=== PATIENT | female | born 1980 | race Caucasian/White ===

== ENCOUNTER 2022-12-03 00:19 | Emergency (ER) | payer BC, SELFPAY ==
[2022-12-03 00:21] VITALS: BP 114/82; PULSE 81; RESP 18; TEMP 36.5; O2SAT 99; BMI 24.8
--- NOTE | 2022-12-03 00:33 | PC.NURSE ---
PATIENT TO ED WITH COMPLAINT OF LUE PAIN, NUMBNESS, TINGLING, BURNING, SWELLING AND DISCOLORATION, ALL OF WHICH STARTED YESTERDAY MORNING. 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 THE ARM DOES NOT APPEAR DISCOLORED AT THIS TIME. SHE SAW DR. FERNANDEZ AND WAS GIVEN MUSCLE RELAXER AND DICLOFENAC. SHE TOOK ONE MUSCLE RELAXER AT 2100 LAST NIGHT AND WAS ABLE TO SLEEP FOR ABOUT 2 HOURS BEFORE WAKING UP TO THE PAIN BEING EVEN MORE INTENSE.
--- NOTE | 2022-12-03 00:34 | XR_ITS ---
The [address] [address] Patient Name: XENIA LOGAN MRN: [id number] date: 1980 Sex: F Assigned Patient Location: ED.MAIN Current Patient Location: ED.MAIN Accession/Order Number: [id number] Exam Date: 12/03/2022 01:06 Report Date: 12/03/2022 01:43 At the request of: ELENO DAVID Procedure: XR shoulder LT min 2V EXAM: XR shoulder LT min 2V HISTORY: pain COMPARISON: None. TECHNIQUE: 3 views of the left shoulder are performed. FINDINGS: There is no acute fracture or dislocation. The bony structures are intact. There are calcifications adjacent to the lateral margin of the proximal humerus, suggesting calcific tendinitis. The visualized left lung is clear. XR/XR shoulder LT min 2V IMPRESSION: Calcific tendinitis. No acute bony abnormality. Electronically authenticated by: ADAIR MORALES Date: 12/03/2022 01:43
--- NOTE | 2022-12-03 00:34 | ED.UPPEXIN1 ---
HPI - Extremity Injury (Upper) General Chief Complaint: Extremity Injury, Upper Stated Complaint: LEFT ARM NUMBNESS Time Seen by Provider: 12/03/22 00:29 Mode of arrival: walk-in History of Present Illness HPI narrative: left shoulder pain. working around the house the weekend. Not able to recall any injury. left shoulder pain yesterday. called PCP and NSAID and muscle relaxer called in. Laid down tonight and woke up with increased pain of her shoulder. Pain radiates down her left arm. left arm and numb and tingly and left hand feels weak. No fever. No complaint of neck pain. Most of the pain is at the left shoulder and pain increases with ROM of the shoulder MD complaint: injury to: Reports left Related Data Home Medications Medication Instructions Recorded Confirmed diclofenac sodium 75 mg mg PO 12/03/22 tablet,delayed release tizanidine 4 mg tablet mg 12/03/22 Allergies Allergy/AdvReac Type Severity Reaction Status Date / Time No Known Drug Allergies Allergy Verified 12/03/22 00:27 Review of Systems ROS Status of ROS 10 or more systems reviewed and unremarkable except as noted in history and below PFSH PFS Social History Smoking status: Never smoker Exam Constitutional Vital Signs, click to edit/add: Last Vital Signs Temp 97.7 F 12/03/22 00:21 Pulse 81 12/03/22 00:21 Resp 18 12/03/22 00:21 BP 114/82 12/03/22 00:21 Pulse Ox 99 12/03/22 00:21 O2 Del Method Room Air 12/03/22 00:21 Common normals: no apparent distress (mild distress. Holding left shoulder against her body) HENMT Common normals: normocephalic Eye Common normals: EOMs intact bilaterally and conjunctivae normal Neck & C-Spine Common normals: full ROM Other: mild left para cervical and superior trapezius . mild-mod tenderness left shoulder. limited ROM left shoulder Respiratory Common normals: normal respiratory effort, no retractions, no use of accessory muscles and clear to auscultation bilaterally Cardio Common normals: regular rhythm, S1 normal heart sound and S2 normal heart sound Extremity Common normals: no joint enlargement Neuro Common normals: oriented x3, CN's II-XII intact bilaterally and moves all extremities Other: decreased left hand grasp Psych Appearance: grossly normal Course Vital Signs Vital signs: Vital Signs Temperature 97.7 F 10/06/23 00:21 Pulse Rate 81 12/03/22 00:21 Respiratory Rate 18 12/03/22 00:21 Blood Pressure 114/82 12/03/22 00:21 Pulse Oximetry 99 12/03/22 00:21 Oxygen Delivery Method Room Air 12/03/22 00:21 Temperature 97.7 F 12/03/22 00:21 Pulse Rate 81 12/03/22 00:21 Respiratory Rate 18 12/03/22 00:21 Blood Pressure 114/82 12/03/22 00:21 Pulse Oximetry 99 12/03/22 00:21 Oxygen Delivery Method Room Air 12/03/22 00:21 MDM - Extremity Injury (Upper) MDM Narrative Medical decision making narrative: patient presents with left shoulder pain and cervical neuropathy of the left upper ext. xray demonstrates calcific tendonitis and CT demonstrates left paracentral disc protrusion C5-6. Patient treated with solumedrol, toradol and magnesium. Her discomfort improved. Her hand grasp improved also now that she doesn't have as much pain of her arm. She is provided with a sling and discharged home to follow up with Dr Abdi orthopedics and her PCP Dr Knight Lab Data Labs: Lab Results 12/03/22 Range/Units 00:40 WBC 10.7 (4.0-11.0) 10^3/uL RBC 3.97 L (4.20-5.40) 10^6/uL Hgb 12.1 (12.0-16.0) g/dL Hct 37.2 (36.0-48.0) % MCV 93.7 (81.0-99.0) fL MCH 30.5 (26.7-34.0) pg MCHC 32.5 (29.9-35.2) g/dL RDW 12.9 (11.0-15.0) % Plt Count 284 (150-450) 10^3/uL MPV 9.4 L (9.5-13.5) fL Neut % (Auto) 68.5 (43.0-75.0) % Lymph % (Auto) 21.7 (20.5-60.0) % [place] % (Auto) 7.2 (1.7-12.0) % Eos % (Auto) 1.9 (0.9-7.0) % Baso % (Auto) 0.4 (0.2-2.0) % Neut # (Auto) 7.4 H (1.4-6.5) 10^3/uL Lymph # (Auto) 2.3 (1.2-3.8) 10^3/uL [place] # (Auto) 0.8 (0.3-0.8) 10^3/uL Eos # (Auto) 0.2 (0.0-0.7) 10^3/uL Baso # (Auto) 0.0 (0.0-0.1) 10^3/uL Abs Immat Gran (auto) 0.03 (0.00-0.03) 10^3/uL Imm/Tot Granulo (auto) 0.3 (0.0-0.5) % ESR 32 H (<=20) mm/hr Sodium 137 (136-145) mmol/L Potassium 3.5 (3.5-5.1) mmol/L Chloride 103 (98-107) mmol/L Carbon Dioxide 28.4 (21.0-32.0) mmol/L Anion Gap 9.1 BUN 13.0 (7.0-18.0) mg/dL Creatinine 0.68 (0.55-1.02) mg/dL Est GFR ( Amer) >60 (>=60) Est GFR (Non-Af Amer) >60 (>=60) BUN/Creatinine Ratio 19.1 Glucose 132 H (74-106) mg/dL Calcium 7.3 L (8.5-10.1) mg/dL C-Reactive Protein <0.2 (<=1.0) mg/dL Imaging Data Chest x-ray: Radiologist's impression: Current Patient Location: ED.MAIN Accession/Order Number: [id number] Exam Date: 12/03/2022 01:06 Report Date: 12/03/2022 01:43 At the request of: ELENO DAVID Procedure: XR shoulder LT min 2V EXAM: XR shoulder LT min 2V HISTORY: pain COMPARISON: None. TECHNIQUE: 3 views of the left shoulder are performed. FINDINGS: There is no acute fracture or dislocation. The bony structures are intact. There are calcifications adjacent to the lateral margin of the proximal humerus, suggesting calcific tendinitis. The visualized left lung is clear. IMPRESSION: Calcific tendinitis. No acute bony abnormality. Electronically authenticated by: ADAIR MORALES Date: 12/03/2022 01:43 CT scan - chest: Radiologist's impression: 12/03/2022 00:58 Report Date: 12/03/2022 01:28 At the request of: ELENO DAVID Procedure: CT cervical spine wo con EXAM: CT cervical spine wo con HISTORY: radicular pain left COMPARISON: None. TECHNIQUE: CT of the cervical spine was acquired without IV contrast. FINDINGS: There is straightening of the normal cervical lordotic curvature. Vertebral body heights are preserved. Cervical spine alignment is maintained without evidence for spondylolisthesis. No acute fractures are visualized. Posterior elements are intact. Prevertebral soft tissues appear unremarkable. Moderate disc space narrowing at C4-C5 and C5-C6. Small broad-based disc protrusion at C4-C5 slightly abutting the ventral cord without significant central canal narrowing. Left paracentral disc protrusion at C5-C6 slightly abutting the left ventral cord with mild to moderate central canal narrowing with mild to moderate left neuroforaminal narrowing. No high-grade neuroforaminal narrowing is visualized within the cervical spine.. Small central disc protrusion at C6-C7 without significant central canal narrowing. Partially visualized mucous retention cyst versus polyp within the left sphenoid sinus. Imaged portions of the lungs appear unremarkable. IMPRESSION: 1. No acute fracture or malalignment of the cervical spine. 2. Moderate disc space narrowing at C4-C5 and C5-C6. 3. Left paracentral disc protrusion at C5-C6 slightly abutting the left ventral cord with mild to moderate central canal narrowing and mild to moderate left neuroforaminal narrowing. No CT evidence for high-grade central canal or osseous neuroforaminal narrowing. Electronically authenticated by: MADAI WATSON Date: 12/03/2022 01:28 Discharge Plan Discharge Chief Complaint: Extremity Injury, Upper Clinical Impression: Calcific tendinitis of left shoulder, Cervical radiculopathy at C6 Patient Disposition: Home, Self-Care Prescriptions / Home Meds: No Action tizanidine 4 mg tablet diclofenac sodium 75 mg tablet,delayed release (DR/EC) PO Instructions: Calcific Tendinitis (ED), Cervical Radiculopathy (ED) Additional Instructions: follow up with orthopedics Dr Abdi and with Dr Knight Stand Alone Forms: Portal Instructions Referrals: George Knight MD [Primary Care Provider] - 1 week
--- NOTE | 2022-12-03 00:37 | CT_ITS ---
[address] [address] Patient Name: XENIA LOGAN MRN: [id number] date: 1980 Sex: F Assigned Patient Location: ER Current Patient Location: ED.MAIN Accession/Order Number: [id number] Exam Date: 12/03/2022 00:58 Report Date: 12/03/2022 01:28 At the request of: ELENO DAVID Procedure: CT cervical spine wo con EXAM: CT cervical spine wo con HISTORY: radicular pain left COMPARISON: None. TECHNIQUE: CT of the cervical spine was acquired without IV contrast. FINDINGS: There is straightening of the normal cervical lordotic curvature. Vertebral body heights are preserved. Cervical spine alignment is maintained without evidence for spondylolisthesis. No acute fractures are visualized. Posterior elements are intact. Prevertebral soft tissues appear unremarkable. Moderate disc space narrowing at C4-C5 and C5-C6. Small broad-based disc protrusion at C4-C5 slightly abutting the ventral cord without significant central canal narrowing. Left paracentral disc protrusion at C5-C6 slightly abutting the left ventral cord with mild to moderate central canal narrowing with mild to moderate left neuroforaminal narrowing. No high-grade neuroforaminal narrowing is visualized within the cervical spine.. Small central disc protrusion at C6-C7 without significant central canal narrowing. Partially visualized mucous retention cyst versus polyp within the left sphenoid sinus. Imaged portions of the lungs appear unremarkable. CT/CT cervical spine wo con IMPRESSION: 1. No acute fracture or malalignment of the cervical spine. 2. Moderate disc space narrowing at C4-C5 and C5-C6. 3. Left paracentral disc protrusion at C5-C6 slightly abutting the left ventral cord with mild to moderate central canal narrowing and mild to moderate left neuroforaminal narrowing. No CT evidence for high-grade central canal or osseous neuroforaminal narrowing. Electronically authenticated by: MADAI WATSON Date: 12/03/2022 01:28
[2022-12-03] MEDS: KETOROLAC TROMETHAMINE 30 MG/ML VIAL IVP (00:49)
[2022-12-03] MEDS: METHYLPREDNISOLONE SOD SUCC PF 125 MG/2 ML VIAL IVP (00:49)
[2022-12-03] MEDS: MAGNESIUM SULFATE IN WATER 2 GM/50 ML PREMIX IV (00:49)
[2022-12-03 00:56] LABS: Basophils Percent Auto 0.4 % (0.2-2.0); Eosinophils Absolute Auto 0.2 10^3/uL (0.0-0.7); Eosinophils Percent Auto 1.9 % (0.9-7.0); Hematocrit 37.2 % (36.0-48.0); Hemoglobin 12.1 g/dL (12.0-16.0); Immature Granulocytes Abs Auto 0.03 10^3/uL (0.00-0.03); Immature Granulocytes Pct Auto 0.3 % (0.0-0.5); Lymphocytes Absolute Auto 2.3 10^3/uL (1.2-3.8); Lymphocytes Percent Auto 21.7 % (20.5-60.0); Mean Corpuscular HGB Conc 32.5 g/dL (29.9-35.2); Mean Corpuscular Hemoglobin 30.5 pg (26.7-34.0); Mean Corpuscular Volume 93.7 fL (81.0-99.0); Mean Platelet Volume 9.4 fL (9.5-13.5); Monocytes Absolute Auto 0.8 10^3/uL (0.3-0.8); Monocytes Percent Auto 7.2 % (1.7-12.0); Neutrophils Absolute Auto 7.4 10^3/uL (1.4-6.5); Neutrophils Percent Auto 68.5 % (43.0-75.0); Platelet Count 284 10^3/uL (150-450); Red Blood Count 3.97 10^6/uL (4.20-5.40); Red Cell Distribution Width 12.9 % (11.0-15.0); White Blood Count 10.7 10^3/uL (4.0-11.0)
[2022-12-03 01:01] LABS: Erythrocyte Sedimentation Rate 32 mm/hr (<=20)
[2022-12-03 01:09] LABS: Anion Gap 9.1; BUN Creatinine Ratio 19.1; Calcium 7.3 mg/dL (8.5-10.1); Carbon Dioxide 28.4 mmol/L (21.0-32.0); Chloride 103 mmol/L (98-107); Estimated GFR (African America >60 (>=60); Estimated GFR (Non-African Ame >60 (>=60); Glucose 132 mg/dL (74-106); Potassium 3.5 mmol/L (3.5-5.1); Sodium 137 mmol/L (136-145)
[2022-12-03 01:11] LABS: C Reactive Protein <0.2 mg/dL (<=1.0)
== END 2022-12-03 02:25 | disposition home or self-care (01) ==
PROVIDERS: Emergency Provider Internal Medicine; PCP Family Medicine
DX: M54.12 Radiculopathy, cervical region (principal); M75.32 Calcific tendinitis of left shoulder; Z79.899 Other long term (current) drug therapy
CPT/HCPCS: 36415; 72125; 73030; 80048; 85025; 85652; 86140; 96365; 96375; 99285; J2930

== ENCOUNTER 2022-12-07 16:27 | Outpatient (RCR) | payer BC, SELFPAY | END 2023-01-01 17:03 | disposition home or self-care (01) | LOC: PT 16:27 | PROVIDERS: PCP Family Medicine; Visit Provider Orthopaedic Surgery | DX: M54.12 Radiculopathy, cervical region (principal) | CPT/HCPCS: 20561; 97012; 97110; 97112; 97140; 97161 ==

== ENCOUNTER 2023-01-11 12:20 | Outpatient (OUT) | payer BC, SELFPAY ==
--- NOTE | 2023-01-11 12:26 | MR_ITS ---
The [address] [address] Patient Name: XENIA LOGAN MRN: [facility]:[id number] date: 1980 Sex: F Assigned Patient Location: MRI Current Patient Location: MRI Accession/Order Number: [id number] Exam Date: 01/11/2023 12:45 Report Date: 01/11/2023 21:06 At the request of: JACQUELINE REEVES Procedure: MR cervical spine wo con EXAM: MR cervical spine wo con HISTORY: radiculopathy COMPARISON: CT cervical spine 12/02/2022. TECHNIQUE: Multiplanar, multisequential MRI images of cervical spine were obtained with without contrast. FINDINGS: The vertebral body heights are maintained. There is slight reversal of the normal cervical lordosis, centered at C4-5. There are moderate narrowing of disc spaces at C4-5 and C5-6 levels with mild marginal spurring. The bone marrow signal intensity appears age appropriate. The craniovertebral junction appears grossly within normal limits. The signal intensity of the cervical spinal cord appears grossly within normal limits. C2-C3 level: No significant disc protrusion, spinal canal stenosis, or foraminal narrowing is seen. C3-C4 level: No significant disc protrusion, spinal canal stenosis, or foraminal narrowing is seen. There is mild left-sided uncovertebral hypertrophy. C4-C5 level: There is mild diffuse disc bulging superimposed with small broad-based central disc protrusion with annular fissure. Mild spinal canal narrowing. Bilateral mild uncovertebral hypertrophy. No neural foraminal narrowing. C5-C6 level: There is mild diffuse disc bulging superimposed with left paracentral/foraminal disc protrusion causing moderate spinal canal narrowing. Bilateral mild uncovertebral hypertrophy. There is left-sided moderate neural foraminal narrowing. C6-C7 level: There is small central disc protrusion. Mild spinal canal narrowing. No neural foraminal narrowing. C7-T1 level: No significant disc protrusion, spinal canal stenosis, or foraminal narrowing is seen. MR/MR cervical spine wo con IMPRESSION: 1. Multilevel cervical spondylosis, most prominent at C5-6 level, as described. Spinal canal narrowing, moderate at C5-6, mild at C4-5 and C6-7 levels. 2. Moderate left neural foraminal narrowing at C5-6 level. 3. Slight reversal of normal cervical lordosis. Electronically authenticated by: MANJIT DAVIS Date: 01/11/2023 21:06
== END 2023-01-11 12:21 | disposition home or self-care (01) ==
LOC: MRI 12:20
PROVIDERS: PCP Family Medicine; Visit Provider Orthopaedic Surgery
DX: M54.12 Radiculopathy, cervical region (principal); M47.812 Spondylosis without myelopathy or radiculopathy, cervical region; M48.02 Spinal stenosis, cervical region
CPT/HCPCS: 72141

== ENCOUNTER 2024-08-06 07:27 | Emergency (ER) | payer OTHER, SELFPAY ==
--- OUTSIDE RECORDS SUMMARY | 2023-02-25 07:08 | XMS_ITS ---
Author Organization [facility] Address [address] [place] [address] Care Team Providers Care Enrollment Management Director Name Role Phone Eugene George Primary Care Provider Tj Skaggs [facility] [phone] REASON FOR VISIT appt needed Encounters Encounter Location Date Provider Diagnosis [facility] [address] [place] [address] 02/25/2023 Tj Abdi Plan Of Treatment No Information Progress Notes * XENIA LOGAN ADOB:1980 (42 yo F)Acc No.[id number]:02/25/2023 Patient: Migue XENIA PYLE :1980 A ge:42 Y S ex:Female Address:[address], [place], [address] * true * Date: Generated for Cecillei ng/Fahemantg/eTransmitting on: 0 08/06/2024 07:38 AM EDT
--- OUTSIDE RECORDS SUMMARY | 2023-03-14 03:40 | XMS_ITS ---
Author Organization [facility] Address [address] [place] [address] Care Team Providers Care Industrial Maintenance Repairer Helper Name Role Phone EugeneGeorge Primary Care Provider Tj Skaggs Unavailable [phone] Allergies No Known Allergies Reason For Referral Reason Please contact bonnie avery to schedule with Pain Management at [facility], thank you. Diagnosis 1 HNP (herniated nucle us pulposus), cervical (M50.20) Referral Organization [facility] Referring Provider First Name Tj Referring Provider Last Name Jin Referring Provider Speciality Orthopedic Surgery Referred Organization [facility] kwabena Referred Address [place], [place], General Notes Lulu Mata 2023 08:33:00 AM > Faxed with clinicals Referral Priority Routine REASON FOR VISIT [facility], c-spine Medications Medication SIG (Take, Route, Frequency, Duration) Notes Start Date End Date Status Xanax 0.25 mg 1 tab(s) orally take one tablet 1 hour prior to MRI, may repeat 1 tablet 1/2 hour prior to MRI if needed for 1 days 01/03/2023 Active Social History Tobacco Use: Social History Observation Description Date Details (start date - stop date) Never Smoker NA - NA Smoking History Question Answer Notes Smoking Status NonSmoker Problems Problem Type SNOMED Code ICD Code Onset Dates Problem Status W/U Status Risk Notes Problem [id number] Cervical disc disorder at C5-C6 level with radiculopathy (M50.122) Active confirmed Vital Signs Height 5'3 in 03/14/2023 Weight 140 lbs 03/14/2023 BMI 24.8 03/14/2023 Encounters Encounter Location Date Provider Diagnosis [facility] [address] [place] [address] [address] [place] [address] 03/14/2023 Tj Abdi Radiculopathy of cervical spine M54.12 and Cervical disc disorder at C5-C6 level with radiculopathy M50.122 Assessments Encounter Date Diagnosis (ICD Code) Assessment Notes Treatment Notes Treatment Clinical Notes Section Notes 03/14/2023 Radiculopathy of cervical spine (ICD-10 - M54.12) 03/14/2023 Cervical disc disorder at C5-C6 level with radiculopathy (ICD-10 - M50.122) 03/14/2023 Other For her cervical disc herniation with radiculopathy I recommended referral to pain management. She will follow-up with me in 2 months to reassess her progress. Import medication Plan Of Treatment Treatment Notes Assessment Notes Other For her cervical disc herniation with radiculopathy I recommended referral to pain management. She will follow-up with me in 2 months to reassess her progress. Import medication Referrals Referral Date Details 03/14/2023 03/14/2023, Please c ontact patient to schedule with Pain Management at [facility], thank you. , [place] Next Appt Details Follow Up: 2 Months, refer t o Pain Management, Reason: Progress Notes * XENIA LOGAN ADOB:1980 (43 yo F)Acc No.[id number]:03/14/2023 Patient: XENIA CHAPMAN Provider: Cornelio Abdi MD :1980 A ge:43 Y S ex:Female Date:03/14/2023 Address:[address] [place], [place] [id number] Pcp:George Knight Subjective: * Chief Complaints: * [facility] [place] [facility], c-spine * HPI: G eneral Follow Up Information: Patient presents today for follow-up of her cervical spine MRI scan. She continues to have neck pain and symptoms that radiate down to the fingertips with numbness and tingling on a daily basis despite oral steroids and physical therapy. * ROS: M usculoskeletal: Admits N andrea Pain. * Medical History: * Surgical History: N o Surgical History documented. * Family History: N o Family History documented.. * Social History: S moking History S moking Status N onSmoker. * Medications: T akingXanax 0.25 mg tablet 1 tab(s) orally take one tablet 1 hour prior to MRI, may repeat 1 tablet 1/2 hour prior to MRI if needed Medication List reviewed and reconciled with the patientTaking Xanax 0.25 mg tablet 1 tab(s) orally take one tablet 1 hour prior to MRI, may repeat 1 tablet 1/2 hour prior to MRI if needed Medication List reviewed and reconciled with the patient * Allergies: N .K.D.A.no[Allergies Verified] Objective: * Vitals: H t: 5'3 , Wt: 140 lbs, BMI:24.8. * Examination: G eneral examination: O n exam today she has a positive Spurling's maneuver. She has 5 out of 5 strength in the upper extremities with normal sensation. Deep tendon reflexes are 3+ and symmetric. X -ray Imaging Studies: M RI Imaging Studies: I have reviewed her MRI report and images and agree with the findings of cervical spondylosis with disc herniations at the C5 C6 predominantly as well as C4-5. Assessment: * Assessment: 1. C ervical disc disorder at C5-C6 level with radiculopathy - M50.122 (Primary) 2 . R adiculopathy of cervical spine - M54.12 Plan: * Treatment: * Procedure Codes: * Follow Up: 2 Months, refer to Pain Management Forms: * Images: * Sign off status: Completed true * Provider: Cornelio Abdi MD Date: 0 03/14/2023 Generated for Irina khan/Delia/Kwasiitting on: 0 08/06/2024 07:37 AM EDT History and Physical Notes * HPI (History of Present Illness) Category Sub-Category Detail Notes Category Not es General Follow Up Information Patient presents tod ay for follow-up of her cervical spine MRI scan. She continues to have neck pain and symptoms that radiate down to the fingertips with numbness and tingling on a daily basis despite oral steroids and physical therapy. Examination Category Sub-Category Detail Notes Category Not es General examination On exam today she has a positive Spurling's maneuver. She has 5 out of 5 strength in the upper extremities with normal sensation. Deep tendon reflexes are 3+ and symmetric. X-ray Imaging Studies MRI Imaging Studies I have r eviewed her MRI report and images and agree with the findings of cervical spondylosis with disc herniations at the C5 C6 predominantly as well as C4-5 Consultation Request Notes Referral Date Referring Provider Referred Provider Not es 03/14/2023 Tj Abdi , Please cont act patient to schedule with Pain Management at [facility], thank you.
--- OUTSIDE RECORDS SUMMARY | 2023-05-16 04:00 | XMS_ITS ---
Author Organization [facility] Address [address] [place] [address] Care Team Providers Care Special Agent Secret Service Name Role Phone George Knight Primary Care Provider Tj Skaggs [facility] [phone] REASON FOR VISIT C5-C6, C6-C7 HNP Medications Medication SIG (Take, Route, Frequency, Duration) Notes Start Date End Date Status Xanax 0.25 mg 1 tab(s) orally take one tablet 1 hour prior to MRI, may repeat 1 tablet 1/2 hour prior to MRI if needed for 1 days 01/03/2023 Active Encounters Encounter Location Date Provider Diagnosis [facility] Office [address] [place] [address] [place] [address] 05/16/2023 Tj Abdi Plan Of Treatment No Information Progress Notes * XENIA LOGAN ADOB:1980 (44 yo F)Acc No.[id number]:05/16/2023 Patient: XENIA CHAPMAN Provider: Cornelio Abdi MD :1980 A ge:43 Y S ex:Female Date:05/16/2023 Address:[facility], [place] [facility] [facility] Pcp:George Knight Subjective: * Chief Complaints: * 1 . C5-C6, C6-C7 HNP. * Medical History: * Medications: T aking Xanax 0.25 mg tablet 1 tab(s) orally take one tablet 1 hour prior to MRI, may repeat 1 tablet 1/2 hour prior to MRI if needed Objective: * Vitals: Assessment: Plan: * Treatment: Forms: * Images: * Electronic signature of Amari Abdi MD on 08/06/2024 at 07:37 AM EDT Sign off status: Pending * Provider: Cornelio Abdi MD Date: 0 05/16/2023 Generated for Irina khan/Delia/Ninoska on: 0 08/06/2024 07:37 AM EDT
--- OUTSIDE RECORDS SUMMARY | 2023-11-15 12:42 | XMS_ITS ---
Author Organization The [facility] [place] Address [address] [place] [address] Care Team Providers Care Assurance Auditor Name Role Phone Allyn Way Primary Care Provider Eugene Fredrick Bolivar [phone] REASON FOR VISIT order for mammogram Encounters Encounter Location Date Provider Diagnosis [facility] [address] [place] [address] 11/15/2023 Fredrick Eugene Encounter for screening mammogram for malignant neoplasm of breast Z12.31 Assessments Encounter Date Diagnosis (ICD Code) Assessment Notes Treatment Notes Treatment Clinical Notes Section Notes 11/15/2023 Encounter for screening mammogram for malignant neoplasm of breast (ICD-10 - Z12.31) Plan Of Treatment Pending Test Test Name Order Date MG MAMM SCREEN 3D JOE CAD 11/15/2023 Progress Notes * Holly JOHNSON ADOB:1980 (43 yo F)Acc No.[id number]:11/15/2023 Patient: Holly CHAPMAN :1980 A ge:43 Y S ex:Female Address:[address] [place] [address] Subjective: * Chief Complaints: * O rder for mammogram * Medical History: * Surgical History: * Hospitalization/Major Diagno stic Procedure: * Medications: Objective: * Vitals: * Physical Examination: Assessment: * Assessment: 1. E ncounter for screening mammogram for malignant neoplasm of breast - Z12.31 (Primary) Plan: * Treatment: * Procedure Codes: * true * Date: Generated for Printi ng/Faxing/Ninoska on: 0 08/06/2024 07:37 AM EDT
--- OUTSIDE RECORDS SUMMARY | 2023-12-13 16:45 | XMS_ITS ---
Author Organization [facility] [place] Address [address] [place] [address] Care Team Providers Care Seafood Fisherman Name Role Phone Allyn Way Primary Care Provider [phone] REASON FOR VISIT mammogram Encounters Encounter Location Date Provider Diagnosis [facility] [address] [place] [address] 12/13/[address] Abnormal mammogram R92.8 Assessments Encounter Date Diagnosis (ICD Code) Assessment Notes Treatment Notes Treatment Clinical Notes Section Notes 12/13/2023 Abnormal mammogram (ICD-10 - R92.8) Plan Of Treatment Pending Test Test Name Order Date US Breast Limited RT 12/13/2023 MG MAMM DX 3D RT CAD 12/13/2023 Progress Notes * DESMONDFrancesie ADOB:1980 (43 yo F)Acc No.[id number]:12/13/2023 Patient: Holly CHAPMAN :1980 A ge:43 Y S ex:Female Address:[address] [place] [address] Subjective: * Chief Complaints: * M ammogram * Medical History: * Surgical History: * Hospitalization/Major Diagno stic Procedure: * Medications: Objective: * Vitals: * Physical Examination: Assessment: * Assessment: 1. A bnormal mammogram - R92.8 (Primary) Plan: * Treatment: * Procedure Codes: * true * Date: Generated for Printi ng/Faxing/eTransmitting on: 0 08/06/2024 07:37 AM EDT
--- OUTSIDE RECORDS SUMMARY | 2023-12-28 08:23 | XMS_ITS ---
Author Organization [facility] in [place] Address [address] [place] [address] Care Team Providers Care Director Of Sports Performance Name Role Phone Allyn Way Primary Care Provider REASON FOR VISIT mammo results Encounters Encounter Location Date Provider Diagnosis [facility] [address] [place] [address] 12/28/[address] Plan Of Treatment No Information Progress Notes * Holly JOHNSON ADOB:1980 (43 yo F)Acc No.[id number]:12/28/2023 Patient: Holly CHAPMAN :1980 A ge:43 Y S ex:Female Address:[address] [place] [address] * true * Date: Generated for Irina khan/Delia/eTransmitting on: 0 08/06/2024 07:37 AM EDT
--- OUTSIDE RECORDS SUMMARY | 2024-08-06 07:37 | XMS_ITS | Clinical Summary ---
Author Organization [facility] Address [address] [place] [address] Care Team Providers Care Tree Topper Name Role Phone Unavailable Primary Care Provider Unavailabl e Social History Tobacco Use Types Packs/Day Years Used Date Smoking Tobacco: Never Assessed Comments Unknown Sex and Gender Information Value Date Recorded Sex Assigned at Not on file Legal Sex Female 6:49 PM EDT Gender Identity Not on file Sexual Orientation Not on file Last Filed Vital Signs Vital Sign Reading Time Taken Comments Blood Pressure 100/64 10/12/2021 12:00 PM EDT Pulse - - Temperature - - Respiratory Rate - - Oxygen Saturation - - Inhaled Oxygen Concentration - - Weight 68 kg (150 lb) 10/12/2021 12:00 PM EDT Height 158.8 cm (5' 2.5 ) 10/12/2021 12:00 PM ED T Body Mass Index 27 10/12/2021 12:00 PM EDT Plan of Treatment Not on file Insurance [facility]
--- OUTSIDE RECORDS SUMMARY | 2024-08-06 07:37 | XMS_ITS | Patient Health Record ---
Author Organization [facility] Address [address] [place] [address] Care Team Providers Care Correction Warden Name Role Phone George Knight Primary Care Provider T[facility] [phone] Reason For Referral No Information Medications Medication SIG (Take, Route, Frequency, Duration) [...] Problem Status W/U Status Risk Notes Problem 25350719 Radiculopathy of cervical spine (M54.12) Active confirmed Problem [id number] HNP (herniated nucleus pulposus), cervical (M50.20) Active confirmed Problem 482987701 Cervical disc disorder at C5-C6 level with radiculopathy (M50.122) Active confirmed Plan Of Treatment Pending Test Test Name Order Date MRI : Cervical Spine W/O Contrast - 7214 1 01/03/2023 [facility]- PT/OT EVAL AND TREAT 3X/WEEK FOR 6 WEEKS 12/06/2022 Insurance Providers Payer Name Payer Address Payer Phone Subscriber Number Group Number Insured Name Patient Relationship to Insured Coverage Start Date Coverage End Date [place] [address] [place] [id number] XENIA LOGAN Self - patient is the insured
--- OUTSIDE RECORDS SUMMARY | 2024-08-06 07:37 | XMS_ITS | Patient Health Record ---
Author Organization [facility] [place] Address [address] [place] [address] Care Team Providers Care Getter Welder Name Role Phone Allyn Way Primary Care Provider Fredrick Knight Unavailable [phone] Allergies No Known Allergies Reason For Referral No Information Medications Medication SIG (Take, Route, Frequency, Duration) Notes Start Date End Date Status Amoxicillin-Pot Clavulanate 875-125 MG 1 tablet Orally every 12 hrs for 10 days 04/06/2023 Active predniSONE 20 MG 3 tablets Orally Onc e a day for 5 days 04/14/2023 Active Social History Tobacco Use: Social History Observation Description Date Details (start date - stop date) Never Smoker NA - NA Tobacco Use/Smoking Question Answer Notes Patient is a nonsmoker Alcohol Screen (Audit-C) Question Answer Notes Did you have a drink contain ing alcohol in the past year? Yes How often did you have 6 or more drinks on one occasion in the past year? Never (0 point) How many drinks did you have on a typical day when you were drinking in the past year? 1 or 2 drinks (0 point) How often did you have a dri nk containing alcohol in the past year? Weekly (3 points) Points 3 Interpretation Positive Problems Problem Type SNOMED Code ICD Code Onset Dates Problem Status W/U Status Risk Notes Problem 36435890 Radiculopathy, cervical region (M54.12) Active confirmed Problem Eczema (59854002) Eczema (L30.9) Active confirmed Problem Sinusitis (57843447) Sinusitis (J32.9) Active confirmed Problem Serous otitis media (32082158) Serous otitis media (H65.90) Active confirmed Encounters Encounter Location Date Provider Diagnosis [facility] [address] [place] [address] 11/15/2023 Fredrick Knight Encounter for screening mammogram for malignant neoplasm of breast Z12.31 [facility] [address] [facility] [address] 12/13/[address] Abnormal mammogram R92.8 [facility] [address] [place] [address] 12/28/[address] Assessments Encounter Date Diagnosis (ICD Code) Assessment Notes Treatment Notes Treatment Clinical Notes Section Notes 11/15/2023 Encounter for screening mammogram for malignant neoplasm of breast (ICD-10 - Z12.31) 12/13/2023 Abnormal mammogram (ICD-10 - R92.8) Plan Of Treatment Pending Test Test Name Order Date US Breast Limited RT 12/13/2023 MG MAMM DX 3D RT CAD 12/13/2023 MG MAMM SCREEN 3D JOE CAD 11/15/2023 Insurance Providers Payer Name Payer Address Payer Phone Subscriber Number Group Number Insured Name Patient Relationship to Insured Coverage Start Date Coverage End Date [employer] PPO PLUS LOCAL PLAN [address] [place] [phone] [id number] Holly Johnson Self - patient is the insured Medical (General) History Medical History History ICD Code Near syncope R55 Ovarian cyst N83.209 radius, fracture left arm fracture Eczema L30.9 concussion Surgical History Surgery Date(Month/Year) partial hysterectomy 01-13-2011 hemorrhoidectomy colonoscopy 11/1994 Hospitalization History Reason Date(Month/Year) see above
[2024-08-06 07:43] VITALS: BP 114/87; PULSE 77; TEMP 37.1; O2SAT 95; BMI 26.6
--- OUTSIDE RECORDS SUMMARY | 2024-08-06 07:48 | XMS_ITS | CCD ---
Author Organization [facility] Care Team Providers Care Crew Team Member Name Role Phone DUNG KNIGHT Admitting Unavailable DUNG KNIGHT Attending Unavailable DUNG KNIGHT Primary Care Unavailable DUNG KNIGHT Consulting Unavailable JACQUELINE DEVINE Consulting Unavailable Allyn Jay Unavailable MD Dung Knight Primary Care Provider DO Samy Tate Attending Provider MD Dung Knight Primary Care Provider MD Dung Knight Attending Provider RUSSEL Way Attending Provider Dung Knight Primary Care Unavailable Allyn Way Attending Unavailable Allyn Way Admitting Unavailable Dung Knight Admitting Unavailable Dung Knight Attending Unavailable Dung Knight Primary Care Unavailable Medications Current Medications Medication Drug Class(es) Dates Sig (Normalized) Sig (Original) Estradiol (1 source) Estrogen Estradiol Active Completed/Discontinued Medications Medication Drug Class(es) Dates Sig (Normalized) Sig (Original) amoxicillin 875 mg / clavulanate 125 mg oral tablet (1 source) Penicillin-class Antibacterial Start: 02-01-2018 take 1 tablet by mouth every twelve hours Amoxicillin-Pot Clavulanate 875-125 MG 1 tablet Orally every 12 hrs for 10 day(s) Jan, Not-Taking fluticasone propionate 0.05 mg/actuat metered dose nasal spray (1 source) Corticosteroid Start: 02-01-2018 take 2 spray(s) nasal route once daily Fluticasone Propionate 50 MCG/ACT 2 sprays in each nostril Nasally Once a day for 10 day(s) Jan, Not-Taking TB Test (1 source) Start: 10-17-2015 TB Test Sep, 0.1 mL Problems Problem Classification Problem Date Documented Da te Episodic/Chronic Administrative/social admission (1 source) Encounter for pre-employment examination Episodic Other connective tissue disease (4 sources) Pain in left foot; Translations: [PAIN IN LEFT FOOT] Onset: 09-17-2019 Episodic Other screening for suspected conditions (not mental disorders or infectious disease) (2 sources) Other abnormal and inconclusive findings on diagnostic imaging of breast; Translations: [Encounter for screening mammogram for malignant neoplasm of breast] Onset: 12-13-2023 Episodic Results Test Name Value Interpretation Reference Range Facil ity US breast RT limitedon 12-27 US breast RT limited [facility] [place] [address] [place] [address] Mammography Report Signed Patient: Holly Johnson MR#: [id number] 5 : 1980 Acct:[id number] Age/Sex: 43 / F ADM Date: 12/28/23 Loc: [place] Room: Type: [facility] Attending Dr: Allyn Way ORTHO ASSISTANT-C Copies to: MD Allyn Iglesias CNP Ordering Provider: Allyn Way CNP Date of Service: 12/28/23 MM/MM special view RT w/CAD: R92.8 ([id number]) US/US breast RT limited: ABN LETICIA CLINICAL DATA: Follow-up enlarging right breast asymmetry. RIGHT DIAGNOSTIC MAMMOGRAMS - FULL FIELD DIGITAL WITH TOMOSYNTHESIS AND CAD Tomosynthesis true lateral and spot compression craniocaudal and mediolateral oblique views of the right breast were obtained using low-dose digital technique. Comparison is made to prior studies from March 24, 2020 through December 13, 2023. This examination was reviewed with the aid of CAD. There are scattered fibroglandular densities. A 16 mm smoothly marginated nodular asymmetry is present in the superior central retroareolar region. Benign-appearing calcifications are present. There are no additional masses, typically malignant calcifications or architectural distortion. LIMITED RIGHT BREAST ULTRASOUND COMPARISON: March 31, 2021 Real-time ultrasound evaluation at the superior periareolar region shows a simple cyst at 12:00, 2 to 3 cm from the nipple. This measures 16 x 9 x 12 mm in size. There is a tiny adjacent daughter cy st. This correlates with the mammogram. MM/MM special view RT w/CAD IMPRESSION: SIMPLE BENIGN CYSTS. ROUTINE FOLLOW-UP IS RECOMMENDED IN ONE YEAR. RESULT CODE: 2 Benign Findings(s) DENSITY CODE: 2 (approximately 25-50% glandular) FOLLOW UP: 1YR The false-negative rate of mammography is approximately 10-percent. Management of a palpable abnormality must be based on clinical grounds. Patient was entered into a reminder system with a target due date for the next mammogram. Impression dictated by: Kortney Bishop M.D.12/28/2023 11:00 AM Dictation Location: [facility] Transcribed By: [facility] 12/28/23 1100 Dictated By: Kortney Bishop MD 12/28/23 1041 Signed By: 12/28/23 1100 Normal [facility] MM screening mammo BI w/CADo n 12-13-2023 MM screening mammo BI w/CAD [facility] [place] [address] Mammography Report Signed Patient: Holly Johnson MR#: [id number] 5 : 1980 Acct:[id number] Age/Sex: 43 / F ADM Date: 12/13/23 Loc: [place] Room: Type: [facility] Attending Dr: Dung Knight MD Copies to: Dung Knight MD Ordering Provider: Dung Knight MD Date of Service: 12/13/23 MM/MM screening mammo BI w/CAD: SCREENING CLINICAL DATA: Screening for malignancy. BILATERAL SCREENING MAMMOGRAMS - FULL FIELD DIGITAL WITH TOMOSYNTHESIS AND CAD Tomosynthesis craniocaudal and mediolateral oblique views of both breasts were obtained using low- dose digital technique. Comparison is made to prior studies from 04/16/2022, 03/25/2021, and 03/24/2020. This examination was reviewed with the aid of CAD. There are scattered fibroglandular densities. Benign-appearing lymph nodes are noted along the chest wall. Benign-appearing calcifications are present bilaterally. There is a larger focal asymmetry in the right breast 2 cm from the nipple now measuring 1.5 cm in greatest dimension localizing to approximately the 6:00 position. No evidence of architectural distortion or atypical calcification. No significant interval change otherwise. MM/MM screening mammo BI w/CAD IMPRESSION: There is a larger focal asymmetry in the right breast 2 cm from the nipple now measuring 1.5 cm in greatest dimension localizing to approximately the 6:00 position. Follow-up with spot compressed views of the right breast and ultrasound if necessary is recommended. RESULT CODE: 0 Incomplete:Needs Additional Imaging Evaluation DENSITY CODE: 2 (approximately 25-50% glandular) FOLLOW UP: ADD The false-negative rate of mammography is approximately 10-percent. Management of a palpable abnormality must be based on clinical grounds. Patient was entered into a reminder system with a target due date for the next mammogram. Impression dictated by: Jameel Brand M.D.12/13/2023 9:40 AM Dictation Location: [facility] Transcribed By: [facility] 12/13/23939 Dictated By: Jameel Brand II, MD 12/13/23936 Signed By: 12/13/23939 Normal [facility] XR FOOT LT MIN 3 VIEWSon XR FOOT LT MIN 3 VIEWS PROCEDURE: XR ANKLE LT MIN 3 V, XR FOOT LT MIN 3 VIEWS HISTORY: Pain in left foot ; lateral foot and ankle pain after falling COMPARISON: None. FINDINGS: BONES:No fracture, acute abnormality, or significant arthropathy. SOFT TISSUES:No visible soft tissue swelling. EFFUSION:None visible. OTHER: Negative. IMPRESSION: 1. No acute bone abnormality. Electronically authenticated by: JACQUELINE DEVINE Date: 2019-09-17 12:37 Normal [facility] Vital Signs Date Time Vital Sign Value Performing Clinician Facility 11-27-2021 10:00-0400 Body height 157.48 cm Allyn Jay Other [facility] Other 11-27-2021 10:00-0400 Body mass index (BMI) [Ratio] 28.13 kg/m2 Allyn Jay Other [facility] Other 11-27-2021 10:00-0400 Body temperature 98.3 [degF] Allyn Walden [facility] Other 11-27-2021 10:00-0400 Body weight 69.76 kg Allyn Jay Other [facility] Other 11-27-2021 10:00-0400 Diastolic blood pressure 69 mm[Hg] Allyn Jay Other [facility] Other 11-27-2021 10:00-0400 Respiratory rate 18 /min Allyn Jay Other [facility] Other 11-27-2021 10:00-0400 SaO2% (BldA) [Mass fraction] 99 % Allyn Jay Other [facility] Other 11-27-2021 10:00-0400 Systolic blood pressure 111 mm[Hg] Allyn Jay Other [facility] Other Encounters Encounter Date Encounter Type Care Provider Facility Start: 12-28-2023 End: 12-28-2023 Patient encounter procedure MD Dung Knight Work Phone: [facility] Work Phone: Start: 12-28-2023 End: 12-28-2023 ambulatory MD Dung Knight Work Phone: [facility] Work Phone: Start: 12-13-2023 End: 12-13-2023 Patient encounter procedure MD Dung Knight Work Phone: [facility] Work Phone: Start: 12-13-2023 End: 12-13-2023 ambulatory MD Dung Knight Work Phone: [facility] Work Phone: Start: 04-16-2022 End: 04-16-2022 ambulatory MD Dung Knight Work Phone: [facility] Work Phone: Start: 04-16-2022 End: 04-16-2022 Patient encounter procedure MD Dung Knight Work Phone: [facility] Work Phone: Start: 11-27-2021 End: 11-27-2021 ambulatory Allyn Jay Other [facility] [employer] Other Start: 11-27-2021 Office outpatient ne w 30 minutes Allyn Jay [facility] Start: 09-17-2019 End: 09-18-2019 Patient encounter procedure DUNG KNIGHT Facility: Procedures Date Procedure Procedure Detail Performing Clinician Start: 12-28-2023 Mammography of right breast MD Dung Knight Work Phone: Start: 12-28-2023 Ultrasonography of r ight breast MD Dung Knight Work Phone: Start: 12-13-2023 Screening mammograph y of bilateral breasts MD Dung Knight Work Phone: Start: 04-16-2022 Screening mammograph y of bilateral breasts MD Dung Knight Work Phone: Payers Date Payer Category Payer Self-pay [id number] 1980 Unknown [id number] 1960 Unknown [id number] Unknown MMO [id number] Unknown [id number] [id number] Unknown [id number] Social History Date Type Detail Facility Unknown if ever smoked [facility] Other Sex Assigned At Sex Assigned At Bir th [facility] [employer] Other Start: 1980 Sex Assigned At Female F [facility] Start: 11-27-2021 Tobacco smoking status NHIS Never smoked tobacco (finding) [facility] Evaluation note 11-27-2021 Note Date & Type Note Facility 11-27-2021 Evaluation note Encounter Date Diagnosis Assessment Notes Oct, Pre-employment examination (ICD-10 - Z02.1) [facility] [employer] Other Evaluation note Note Date & Type Note Facility Evaluation note No assessment information availa ble [facility] Work Phone: History general Narrative - Reported Note Date & Type Note Facility History general Narrative - Reported Type Surgical History 3 ovarian cysts removed Surgical History hysterectomy 2009 Hospitalization History See above [facility] [employer] Other Summary Purpose Family History No Family History Records Found Relationship Condition Age at Onset Recorded Date/T leopoldo father Malignant neoplasm Unknown Advance Directives No Advanced Directives Records Found Advance Directive Response Recorded Date/ Time Advance Directives No January 10:21am Advance Directive Response Recorded Date/ Time Advance Directives No January 11:21am Chief Complaint and Reason for Visit Chief Complaint Z12.31 Chief Complaint z12.31 Chief Complaint z12.31 r92.8 Additional Source Comments INFORMATION SOURCE (unrecogn ized section and content) DATE CREATED AUTHOR 09/22/2019 [facility] DATE CREATED AUTHOR AUTHOR'S ORGANIZ ATION 01/01/2024 [facility] REASON FOR VISIT (unrecogniz ed section and content) WORK PHYSICAL Care Teams (unrecognized sec tion and content) Team Status: Inactive Member Role Status Wesly Knight MD Primary Care Provider Active Samy Tate DO Attending Provider Active Team Status: Active Member Role Status Wesly Knight MD Primary Care Provider Active Team Status: Inactive Member Role Status Wesly Knight MD Primary Care Provide r, Attending Provider Active Start: December 13, 2023 End: December 13, 2023 Team Status: Inactive Member Role Status Wesly Knight MD Primary Care Provider Active Start: December 28, 2023 End: December 28, 2023 RUSSEL Roberson Attending Provider Active Start: December 28, 2023 End: December 28, 2023 Goals (unrecognized section and content) Goals may be documented in a n alternate section FOR RECORDS PERTAINING TO PATIENTS WHO ARE OR HAVE BEEN ENROLLED IN A CHEMICAL DEPENDENCY/SUBSTANCEABUSE PROGRAM, SOME INFORMATION MAY BE OMITTED. This clinical summary was aggregated from multiple sources. Caution should be exercised in using it in the provision of clinical care. This summary normalizes information from multiple sources, and as a consequence, information in this document may materially change the coding, format and clinical context of patient data. In addition, data may be omitted in some cases. CLINICAL DECISIONS SHOULD BE BASED ON THE PRIMARY CLINICAL RECORDS. [facility] provides no warranty or guarantee of the accuracy or completeness of information in this document.
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
[2024-08-06 10:55] VITALS: BP 122/91; PULSE 71; TEMP 36.7; O2SAT 100
== END 2024-08-06 10:57 | disposition home or self-care (01) ==
PROVIDERS: Emergency Provider Emergency Medicine; PCP Family Medicine
DX: M54.12 Radiculopathy, cervical region (principal)
CPT/HCPCS: 72040; 99283